=== PATIENT | male | born 1975 | race African-American/Black ===

== ENCOUNTER 2018-09-24 11:10 | Emergency (ER) | payer OTHER ==
[2018-09-24 11:15] VITALS: BP 152/98
[2018-09-24] MEDS ORDERED: FENTANYL CITRATE INJ/PF 100 MCG/2 ML AMPUL IM ONE (11:31)
[2018-09-24] MEDS ORDERED: LIDOCAINE 5% (700 MG) TRANSDERMAL ADH..PATCH TP ONE (11:32)
[2018-09-24] MEDS ORDERED: CYCLOBENZAPRINE HCL 10 MG TABLET PO ONE (11:32)
[2018-09-24] MEDS ORDERED: ACETAMINOPHEN 325 MG TABLET PO ONE (11:32)
--- NOTE | 2018-09-24 11:37 | ER Document Report ---
ED General - General Chief Complaint: Back Pain Stated Complaint: BACK PAIN Time Seen by Provider: 09/24/18 11:22 Primary Care Provider: [facility]AY[facility] [NO LOCAL MD] - Follow up in 3-5 days Mode of Arrival: Ambulatory Information source: Patient, [facility] Records Notes: 42-year-old male with hypertension, asthma, bipolar disorder, arthritis presents with complaints of right low back pain that started 3 weeks prior to arrival with worsening of pain over the last 2 days. Patient works in [employer] and states that he lifted a garbage can onto the truck when it started to fall backwards causing him to twist his back to try to catch it and causing instant pain. Patient describes the pain as throbbing, aching with intermittent radiation to his right leg. He denies any leg weakness, saddle anesthesia, fever, history of IV drug use, urinary retention or fecal incontinence. TRAVEL OUTSIDE OF THE [place] IN LAST 30 DAYS: No - HPI Onset: Other Onset/Duration: Gradual, Persistent Quality of pain: Throbbing Severity: Moderate Associated symptoms: denies: Chest pain, Chills, Fever, Nausea, Vomiting, Shortness of breath Exacerbated by: Movement Relieved by: Denies Similar symptoms previously: No Recently seen / treated by doctor: No - Related Data Allergies/Adverse Reactions: acetaminophen [From Vicodin] Allergy (Verified 09/24/18 11:10) Nausea Iodinated Contrast- Oral and IV Dye [IV Dye, Iodine Containing] Allergy (Verified 09/24/18 11:10) Nausea red dye Allergy (Verified 09/24/18 11:10) tramadol Allergy (Verified 09/24/18 11:10) naproxen Adverse Reaction (Verified 09/24/18 11:10) Past Medical History - General Information source: Patient - Social History Smoking Status: Current Every Day Smoker Cigarette use (# per day): Yes - 20 Chew tobacco use (# tins/day): No Smoking Education Provided: Yes - Smoking cessation counseling was provided for 4 minutes at the bedside Frequency of alcohol use: Occasional Drug Abuse: None Lives with: Family Family History: CAD Patient has suicidal ideation: No Patient has homicidal ideation: No - Past Medical History Cardiac Medical History: Reports: Hx Hypertension Pulmonary Medical History: Reports: Hx Asthma Renal/ Medical History: Denies: Hx Peritoneal Dialysis Musculoskeletal Medical History: Reports Hx Arthritis Psychiatric Medical History: Reports: Hx Bipolar Disorder, Hx Depression, Hx Schizophrenia Past Surgical History: Reports: Hx Orthopedic Surgery - left great toe - Immunizations Hx Diphtheria, Pertussis, Tetanus Vaccination: Yes Review of Systems - Review of Systems Notes: REVIEW OF SYSTEMS: CONSTITUTIONAL : Denies fever, chills, or sweats. Denies recent illness. Denies weight loss, recent hospitalizations. EENT: Denies visual changes, eye pain. Denies sore throat, oral lesions, difficulty swallowing. CARDIOVASCULAR: Denies chest pain. Denies palpitations. Denies lower extremity edema. RESPIRATORY: Denies cough. Denies shortness of breath, wheezing. GASTROINTESTINAL: Denies abdominal pain or distention. Denies nausea, vomiting, or diarrhea. Denies blood in vomitus, stools, or per rectum. Denies black, tarry stools. Denies constipation. GENITOURINARY: Denies difficulty urinating, painful urination, frequency, blood in urine, testicular pain or penile discharge. MUSCULOSKELETAL: Denies neck pain or stiffness. Denies joint pain or swelling. SKIN: Denies rash, lesions or sores. HEMATOLOGIC : Denies easy bruising or bleeding. LYMPHATIC: Denies swollen glands. NEUROLOGICAL: Denies confusion or altered mental status. Denies loss of consciousness. Denies dizziness or lightheadedness. Denies headache. Denies weakness or paralysis. Denies problems difficulty with ambulation, slurred speech. Denies sensory loss, numbness, or tingling. Denies seizures. PSYCHIATRIC: Denies anxiety or stress. Denies depression, suicidal ideation, or Physical Exam - Vital signs Vitals: Temp Pulse Resp BP Pulse Ox 97.9 F 98 20 152/98 H 97 09/24/18 11:14 09/24/18 11:14 09/24/18 11:14 09/24/18 11:14 09/24/18 11:14 - Notes Notes: PHYSICAL EXAMINATION: GENERAL: Well-appearing, well-nourished and in no acute distress. HEAD: Atraumatic, normocephalic. EYES: Pupils equal round and reactive to light, extraocular movements intact, sclera anicteric, conjunctiva are normal. ENT: Nares patent, oropharynx clear without exudates. Moist mucous membranes. NECK: Normal range of motion, supple without lymphadenopathy LUNGS: Breath sounds clear to auscultation bilaterally and equal. No wheezes ra les or rhonchi. HEART: Regular rate and rhythm without murmurs ABDOMEN: Soft, nontender, nondistended abdomen. No guarding, no rebound. No masses appreciated. Musculoskeletal: Normal range of motion, no pitting or edema. No cyanosis. Tenderness with palpation along the right paraspinal musculature of the lumbar spine. No midline tenderness. NEUROLOGICAL: Mental status; alert and oriented x3. Cranial nerves II through XII intact. Sensation intact to sharp/dull differentiation in all extremities. Motor; normal tone. No abnormal movements appreciated. No pronator drift. Strength tested and 5/5 in bilateral wrist flexion/extension, elbow flexion/extension, shoulder abduction, straight leg raise, knee flexion/extension, ankle dorsiflexion/plantar flexion. Patient ambulates with a steady gait. Coordination; no ataxia. Finger to nose and heel to uribe testing intact bilaterally. Reflexes; brachial radialis, biceps, and patellar reflexes within normal limits and symmetric bilaterally. Babinski with downgoing toes bilaterally. Patient able to go up on his toes, up on his heels. Straight leg raise negative bilaterally PSYCH: Normal mood, normal affect. SKIN: Warm, Dry, normal turgor, no rashes or lesions noted. Course - Re-evaluation Re-evalutation: Temp Pulse Resp BP Pulse Ox 97.9 F 98 20 152/98 H 97 09/24/18 11:14 09/24/18 11:14 09/24/18 11:14 09/24/18 11:14 09/24/18 11:14 09/24/18 16:25 42-year-old male presents with right low back pain with tenderness along the right paraspinal musculature. No neuro deficits, red flag symptoms including fever, leg weakness, saddle anesthesia, urinary retention, fecal incontinence, history of IV drug abuse, midline tenderness. Patient does report a lifting injury at work with immediate pain that has slowly progressed. Patient has not tried taking any medication for this. Vital signs reviewed and within normal limits. Patient does not appear toxic or dehydrated. He is in no acute distress. Patient is ambulating without difficulty. Patient was given Flexeril and a lidocaine patch was placed. Prescription for Aspercreme and Flexeril was administered. Presentation of a well appearing patient complaining of acute on chronic back pain. No rapid progression of symptoms, systemic symptoms including fevers, chills, weight loss, history of recent bacterial infection, bilateral symptoms, numbness, weakness, difficulty walking, urinary retention or bowel incontinence, personal history of cancer, immunosuppression, diabetes, known AAA, or history of IV drug use. Exam is without point tenderness over vertebral bodies, pulsatile abdominal mass, and patient has symmetric and intact lower extremity strength, sensation, and reflexes without clonus. 2+ symmetric medial malleolar and dorsalis pedis pulses Plan to manage conservatively with outpatient analgesia, analgesia. - Acetaminophen 650 q 4 + ibuprofen 600 q 6, Aspercreme, Flexeril - Continue normal daily activities as tolerated by pain - Provide with standard musculoskeletal back pain exercise instructions - Instruct to follow up with primary care provider if symptoms not improving - Provide careful return precautions and concerning symptoms to watch for. - Vital Signs Vital signs: Temp Pulse Resp BP Pulse Ox 97.9 F 98 20 152/98 H 97 09/24/18 11:14 09/24/18 11:14 09/24/18 11:14 09/24/18 11:14 09/24/18 11:14 Discharge - Discharge Clinical Impression: Low back pain Qualifiers: Chronicity: acute Back pain laterality: right Sciatica presence: without sciatica Qualified Code(s): M54.5 - Low back pain Lumbar strain Qualifiers: Encounter type: initial encounter Qualified Code(s): S39.012A - Strain of muscle, fascia and tendon of lower back, initial encounter Hypertension Qualifiers: Hypertension type: unspecified Qualified Code(s): I10 - Essential (primary) hypertension Condition: Good Disposition: HOME, SELF-CARE Instructions: Ice Packs ([facility]), Muscle Strain ([facility]), Pain Medication Injection ([facility]) Additional Instructions: You have been seen in the Emergency Department (ED) today for back pain. Your workup and exam have not shown any acute abnormalities and you are likely suffering from muscle strain or possible problems with your discs, but there is no treatment that will fix your symptoms at this time. You should also purchase a local lidocaine cream such as "aspercreme with lidocaine" and use per bottle instructions to the affected area. Apply heat to the area as often as you are able. Continue to keep active and avoid prolonged periods of bed rest. Please follow up with your doctor as soon as possible regarding today's ED visit and your back pain. Return to the ED for worsening back pain, fever, weakness or numbness of either leg, or if you develop either (1) an inability to urinate or have bowel movements, or (2) loss of your ability to control your bathroom functions (if you start having "accidents"), or if you develop other new symptoms that concern you.concern you. Prescriptions: Cyclobenzaprine HCl [Flexeril 10 mg Tablet] 10 mg PO TIDP PRN #15 tab PRN Reason: Lidocaine HCl [Aspercreme] 76.5 gm TP BID #1 tube Forms: Elevated Blood Pressure, Smoking Cessation Education, Return to Work [facility]errals: [facility] [NO LOCAL MD] - Follow up in 3-5 days
== END 2018-09-24 12:05 | disposition home or self-care (01) ==
LOC: ER 11:10
DX: S39.012A Strain of muscle, fascia and tendon of lower back, initial encounter (principal); X50.0XXA Overexertion from strenuous movement or load, initial encounter; Y93.89 Activity, other specified; Y99.0 Civilian activity done for income or pay; I10 Essential (primary) hypertension; J45.909 Unspecified asthma, uncomplicated; F17.210 Nicotine dependence, cigarettes, uncomplicated; Z71.6 Tobacco abuse counseling; Z88.6 Allergy status to analgesic agent; Z91.041 Radiographic dye allergy status; Z88.5 Allergy status to narcotic agent; Z91.048 Other nonmedicinal substance allergy status
CPT/HCPCS: 99283; 99406

== ENCOUNTER 2020-05-13 16:32 | Observation (INO) | payer SELFPAY ==
--- NOTE | 2020-05-13 16:49 | ER Document Report ---
ED Medical Screen (RME) - General Stated Complaint: DIFFICULTY BREATHING Time Seen by Provider: 05/13/20 16:40 TRAVEL OUTSIDE OF THE [place] IN LAST 30 DAYS: No - HPI Notes: 05/13/20 16:42 44-year-old male with a history of anxiety and asthma presents to the emergency room with shortness of breath that started approximately 2 hours ago along with left-sided chest pain that started 2 hours ago. Patient denies he had an episode last week where he was short of breath after he was walking downstairs and he became lightheaded after consuming an energy drink. denies any history of having any myocardial infarctions. Denies any radiation of his chest pain. Reports nausea but denies any vomiting or abdominal pain. Does endorse feeling lightheaded and dizzy. Denies taking any medications aside from his rescue inhaler. Denies any fevers or chills. Charge nurse Rosalia, made aware of pt's status and need for room at 1642. pt will be brought to T2 I have greeted and performed a rapid initial assessment of this patient. A comprehensive ED assessment and evaluation of the patient, analysis of test results and completion of the medical decision making process will be conducted by additional ED providers. PHYSICAL EXAMINATION: GENERAL: Mildly ill, well-nourished and in moderate distress HEAD: Atraumatic, normocephalic. CV: tachycardia LUNGS: tachypneic, breath sounds clear in all lobes RR 46 Musculoskeletal: Normal range of motion NEUROLOGICAL: Breathless, in wheel chair SKIN: Warm, Dry, normal turgor, no rashes or lesions noted. - Related Data Allergies/Adverse Reactions: acetaminophen [From Vicodin] Allergy (Verified 09/24/18 11:10) Nausea Iodinated Contrast Media [IV Dye, Iodine Containing] Allergy (Verified 09/24/18 11:10) Nausea red dye Allergy (Verified 09/24/18 11:10) tramadol Allergy (Verified 09/24/18 11:10) naproxen Adverse Reaction (Verified 09/24/18 11:10) Past Medical History - Past Medical History Cardiac Medical History: Reports: Hx Hypertension Pulmonary Medical History: Reports: Hx Asthma Renal/ Medical History: Denies: Hx Peritoneal Dialysis Musculoskeltal Medical History: Reports Hx Arthritis Psychiatric Medical History: Reports: Hx Bipolar Disorder, Hx Depression, Hx Schizophrenia Past Surgical History: Reports: Hx Orthopedic Surgery - left great toe - Immunizations Hx Diphtheria, Pertussis, Tetanus Vaccination: Yes Physical Exam - Vital signs Vitals: Pulse Resp BP Pulse Ox 163 H 46 H 132/76 H 98 05/13/20 16:40 05/13/20 16:40 05/13/20 16:40 05/13/20 16:40 Course - Vital Signs Vital signs: Temp Pulse Resp BP Pulse Ox 163 H 46 H 132/76 H 98 05/13/20 16:40 05/13/20 16:40 05/13/20 16:40 05/13/20 16:40
[2020-05-13] MEDS ORDERED: DILTIAZEM HCL INJ 25 MG/5 ML VIAL IV ONE ×2 (17:07→17:17)
[2020-05-13] MEDS ORDERED: LORAZEPAM INJ 2 MG/1 ML VIAL IV ONE (17:07)
[2020-05-13] MEDS ORDERED: NORMAL SALINE 1000 ML 1,000 ML IV ONE (17:11)
[2020-05-13] MEDS ORDERED: DILTIAZEM HCL INJ 25 MG/5 ML VIAL ONE (17:17)
--- NOTE | 2020-05-13 17:17 | ER Document Report ---
ED Respiratory Problem - General Chief Complaint: Shortness Of Breath Stated Complaint: DIFFICULTY BREATHING Time Seen by Provider: 05/13/20 16:40 Mode of Arrival: Ambulatory Information source: Patient Notes: 05/13/20 16:41 - ED Nursing Note by BOLIVAR ALBA [facility] Num: [id number] : 1975 Patient Age: 44 Addendum entered by BOLIVAR ALBA 05/13/20 16:56: unable to obtain temperature at time of triage due to patients work of br [employer]. Original Note: patient presented to [facility] with shortness of breath, pt has labored breathing upon assessment with respiratory rate of 48. Patient brought to [facility] where vital signs were obtained. Heart rate 162bpm, respiratory rate 48, oxygen saturation 97-100%. The patient reports hx of asthma, used rescue inhaler x2. Patient is having left sided chest pain, nausea, and lightheadedness. Attempted to use paper bag to slow down breathing as well as breathing exercises without relief. Pt has anxiety. Pt remains tachycardic throughout triage, heart rate 166 . Charge nurse made aware. ED Medical Screen (Niki guevara) - General Stated Complaint: DIFFICULTY BREATHING Time Seen by Provider: 05/13/20 16:40 TRAVEL OUTSIDE OF THE [place] IN LAST 30 DAYS: No - HPI Notes: 05/13/20 16:42 44-year-old male with a history of anxiety and asthma presents to the emergency room with shortness of breath that started approximately 2 hours ago along with left-sided chest pain that started 2 hours ago. Patient denies he had an episode last week where he was short of breath after he was walking downstairs and he became lightheaded after consuming an energy drink. denies any history of having any myocardial infarctions. Denies any radiation of his chest pain. Reports nausea but denies any vomiting or abdominal pain. Does endorse feeling lightheaded and dizzy. Denies taking any medications aside from his rescue inhaler. Denies any fevers or chills. Charge nurse Rosalia, made aware of pt's status and need for room at 1642. pt will be brought to T2 MY NOTES 44-year-old black male arrives by POV driven by his girlfriend from his job at [employer]. He was rushing up 3 flights of steps very quickly around 1/2 hours prior to arrival. This is when he began to have tightness in his chest shortness of breath and feeling very weak making him sit down. He has never had symptoms like this in the past. He smokes 1 pack of cigarettes daily since he was a teenager. He does drink vodka on a daily basis. He denies any liver disease heart disease fever chills . He reports for the past several days has had cough and cold symptoms but denies any COVID-19. He denies any sickness and his girlfriend who drove him as well. Patient denies any hematuria hemoptysis skin lesions sore throat nuchal rigidity blurry vision cephalgia hematuria low back pain extremity pain. Upon arrival he was given Ativan 2 IV and Cardizem 25 IV because of a heart rate around 170 bpm and this decreased after another 10 mg IV of Cardizem to 160 with blood pressure decreasing as well and patient was much more comfortable by 1720 at this point was also placed on amiodarone drip 150 bolus. Nathanael upfront at triage and ordered a CTA and this is pending on the patient becoming more stable for transport to CT room. Also patient reports she has a history of hypertension and has been out of his lisinopril for least 4 months. Patient also reports he has had for the past several days right groin pain and dysuria with symptoms resembling his last UTI. He reports this happened many years ago. Patient denies any hematuria or trauma or STDs. TRAVEL OUTSIDE OF THE [place] IN LAST 30 DAYS: No - HPI Patient complains to provider of: Chest pain, Hurts to breath, Short of breath Onset: Just prior to arrival - while at work Quality of pain: Achy Severity: Severe Pain Level: 5 Chest pain/discomfort: Heaviness, Tightness Cough: Nonproductive Sputum amount: None Associated symptoms: Anxiety - Related Data Allergies/Adverse Reactions: acetaminophen [From Vicodin] Allergy (Verified 09/24/18 11:10) Nausea Iodinated Contrast Media [IV Dye, Iodine Containing] Allergy (Verified 09/24/18 11:10) Nausea red dye Allergy (Verified 09/24/18 11:10) tramadol Allergy (Verified 09/24/18 11:10) naproxen Adverse Reaction (Verified 09/24/18 11:10) Past Medical History - General Information source: Patient - Social History Smoking Status: Unknown if Ever Smoked Cigarette use (# per day): Yes - 1 ppd Chew tobacco use (# tins/day): No Smoking Education Provided: Yes Drug Abuse: None Lives with: Family Family History: Reviewed & Not Pertinent, CAD Patient has suicidal ideation: No Patient has homicidal ideation: No - Past Medical History Cardiac Medical History: Reports: Hx Hypertension Pulmonary Medical History: Reports: Hx Asthma Renal/ Medical History: Denies: Hx Peritoneal Dialysis Musculoskeletal Medical History: Reports Hx Arthritis Psychiatric Medical History: Reports: Hx Bipolar Disorder, Hx Depression, Hx Schizophrenia Past Surgical History: Reports: Hx Orthopedic Surgery - left great toe - Immunizations Hx Diphtheria, Pertussis, Tetanus Vaccination: Yes Review of Systems - Review of Systems Constitutional: No symptoms reported EENT: No symptoms reported Cardiovascular: No symptoms reported Respiratory: No symptoms reported Gastrointestinal: No symptoms reported Genitourinary: No symptoms reported Male Genitourinary: No symptoms reported Musculoskeletal: No symptoms reported Skin: No symptoms reported Hematologic/Lymphatic: No symptoms reported Neurological/Psychological: No symptoms reported Physical Exam - Vital signs Vitals: Pulse Resp BP Pulse Ox 163 H 46 H 132/76 H 98 05/13/20 16:40 05/13/20 16:40 05/13/20 16:40 05/13/20 16:40 Interpretation: Hypertensive, Tachycardic - General General appearance: Appears well, Alert - HEENT Head: Normocephalic, Atraumatic Eyes: Normal Pupils: PERRL - Respiratory Respiratory status: No respiratory distress Chest status: Nontender Breath sounds: Normal Chest palpation: Normal - Cardiovascular Rhythm: Irregularly irregular, Tachycardia Heart sounds: Normal auscultation Murmur: No Friction rub: No Piedad's crunch: No - Abdominal Inspection: Normal Distension: No distension Bowel sounds: Normal Tenderness: Nontender Organomegaly: No organomegaly - Rectal Prostate: Other - deferred - Genitourinary Scrotum: Other - deferred - Back Back: Normal, Nontender - Extremities General upper extremity: Normal inspection, Nontender, Normal color, Normal ROM, Normal temperature General lower extremity: Normal inspection, Nontender, Normal color, Normal ROM, Normal temperature, Normal weight bearing. No: Karrie's sign - Neurological Neuro grossly intact: Yes Cognition: Normal Orientation: AAOx4 [place] Coma Scale Eye Opening: Spontaneous [place] Coma Scale Verbal: Oriented [place] Coma Scale Motor: Obeys Commands [place] Coma Scale Total: 15 Speech: Normal Motor strength normal: LUE, RUE, LLE, RLE Sensory: Normal - Psychological Associated symptoms: Anxious - Skin Skin Temperature: Warm Skin Moisture: Dry Skin Color: Normal Course - Vital Signs Vital signs: Temp Pulse Resp BP Pulse Ox 98 F 153 H 39 H 161/106 H 97 05/13/20 17:20 05/13/20 17:20 05/13/20 20:00 05/13/20 19:25 05/13/20 20:00 - Laboratory Result Diagrams: 05/13/20 17:03 05/13/20 18:27 Laboratory results interpreted by me: 05/13/20 05/13/20 05/13/20 17:03 18:27 18:27 WBC 10.6 H Plt Count 541 H Sodium 136.6 L Carbon Dioxide 21 L Creatine Kinase 211 H Urine Protein 05/13/20 20:07 WBC Plt Count Sodium Carbon Dioxide Creatine Kinase Urine Protein 30 H - Diagnostic Test Radiology reviewed: Reports reviewed - Chest x-ray read negative by radiologist and I reviewed this as it was taken on the portable machine. His CT however was read as interstitial infectious bilateral disease process versus edema. His CT of abdomen was within normal limits. - EKG Interpretation by Me EKG shows normal: Sinus rhythm Rate: Tachycardia Rhythm: NSR - Heart rate around 163 bpm with first-degree AV block borderline inferior Q waves and also repolarization suggest ischemia inferior leads with borderline prolonged QT interval. This EKG was read by myself and I agree with machine. Critical Care Note - Critical Care Note Comments: I advised patient of his lab findings and his CT findings and he still wants to go home despite having a heart rate of 144 and hypertension. I discussed this case with Dr. Mcintyre cork painter and grader and he will see this patient in the hospital as well as Dr. Eduardo Ruffin at [facility] and he will evaluate the patient in the ER. Discharge - Discharge Clinical Impression: Anxiety, Tachycardia, Chest pain at rest, Interstitial pneumonia of both lungs, COVID-19 virus RNA test result unknown Condition: Stable Disposition: ADMITTED INPATIENT Admitting Provider: Dr Eduardo Ruffin Unit Admitted: [facility] Additional Instructions: Transfer patient to [facility] as per Dr. Clark
[2020-05-13] MEDS ORDERED: AMIODARONE HCL 150 MG in DEXTROSE 5%-WATER 100 ML IV ONE (17:21)
[2020-05-13] MEDS ORDERED: AMIODARONE HCL INJ 150 MG/3 ML VIAL IV ONE (17:27)
[2020-05-13 17:32] LABS: INTERNATIONAL RATION (INR) 1.01; PARTIAL THROMBOPLASTIN TIME 25.6 SEC (23.5-35.8); PROTHROMBIN TIME 13.5 SEC (11.4-15.4)
[2020-05-13 17:36] LABS: ABSOLUTE BASOPHILS # (AUTO) 0.1 10^3/uL (0.0-0.2); ABSOLUTE MONOCYTES (AUTO) 0.9 10^3/uL (0.1-1.4); ABSOLUTE NEUT (AUTO) 6.5 10^3/uL (1.7-8.2); BASOPHILS % (AUTO) 0.7 % (0-2); EOSINOPHILS % (AUTO) 0.1 % (0-6); HEMATOCRIT 42.6 % (37.9-51.0); HEMOGLOBIN 14.6 g/dL (13.5-17.0); LYMPHOCYTES % (AUTO) 28.7 % (13-45); MEAN CORPUSCULAR HEMOGLOBIN 32.9 pg (27.0-33.4); MEAN CORPUSCULAR HGB CONC 34.2 g/dL (32.0-36.0); MEAN CORPUSCULAR VOLUME 96 fl (80-97); MONOCYTES % (AUTO) 8.9 % (3-13); PLATELET COUNT 541 10^3/uL (150-450); RED BLOOD COUNT 4.43 10^6/uL (4.35-5.55); RED CELL DISTRIBUTION WIDTH 12.9 % (11.5-14.0); SEGMENTED NEUTROPHILS % (AUTO) 61.6 % (42-78); TOTAL CELLS COUNTED % (AUTO) 100 %; WHITE BLOOD COUNT 10.6 10^3/uL (4.0-10.5)
--- NOTE | 2020-05-13 18:02 | RADIOLOGY REPORT (SQ) ---
EXAM DESCRIPTION: CHEST SINGLE VIEW IMAGES COMPLETED DATE/TIME: 05/13/2020 4:08 pm REASON FOR STUDY: Shortness of breath T COMPARISON: 03/19/2020 EXAM PARAMETERS: NUMBER OF VIEWS: One view. TECHNIQUE: Single frontal radiographic view of the chest acquired. RADIATION DOSE: NA LIMITATIONS: None. FINDINGS: LUNGS AND PLEURA: No opacities, masses or pneumothorax. No pleural effusion. MEDIASTINUM AND HILAR STRUCTURES: No masses. Contour normal. HEART AND VASCULAR STRUCTURES: Heart normal in size. Normal vasculature. BONES: No acute findings. HARDWARE: None in the chest. OTHER: No other significant finding. IMPRESSION: NO ACUTE RADIOGRAPHIC FINDING IN THE CHEST. TECHNICAL DOCUMENTATION: JOB ID: [id number] 2010 [employer]- All Rights Reserved Reading location - IP/workstation name: [email or web address]
--- NOTE | 2020-05-13 18:41 | RADIOLOGY REPORT (SQ) ---
EXAM DESCRIPTION: CTA CHEST IMAGES COMPLETED DATE/TIME: 05/13/2020 6:23 pm REASON FOR STUDY: sob, breathless, heart rate 160s COMPARISON: Chest x-ray 05/13/2020 TECHNIQUE: CT scan of the chest performed using helical scanning technique with dynamic intravenous contrast injection. Images reviewed with lung, soft tissue and bone windows. Reconstructed coronal and sagittal MPR images reviewed. Additional 3 dimensional post-processing performed to develop Maximal Intensity Projection images ([place] P). All images stored on PACS. All CT scanners at this facility use dose modulation, iterative reconstruction, and/or weight based d osing when appropriate to reduce radiation dose to as low as reasonably achievable (ALARA). [facility]: Dose Right [facility]: CareDose [facility]: Dose Right [facility]: Teradose 4D [facility]: GenePeeks CONTRAST TYPE AND DOSE: 100 mL Omnipaque 350- low osmolar. Contrast bolus adequate for pulmonary arteries and aorta. RENAL FUNCTION: None required. The patient is less than 50 years old. RADIATION DOSE: CT Rad equipment meets quality standard of care and radiation dose reduction techniq ues were employed. CTDIvol: 24.8 - 34.3 mGy. DLP: 4933 mGy-cm. . LIMITATIONS: None. FINDINGS: LUNGS AND PLEURA: Bilateral ground-glass infiltrates the upper lobes predominantly. Limit ed ground-glass infiltrates in the left lower lobe. Mild dependent atelectasis in the lower lobes bi laterally. AORTA AND GREAT VESSELS: No aneurysm. No dissection. HEART: No pericardial effusion. No significant coronary artery calcifications. PULMONARY ARTERIES: No emboli visualized in the main pulmonary arteries or the segmental branches. HILAR AND MEDIASTINAL STRUCTURES: No identified masses or abnormal nodes. HARDWARE: None in the chest. UPPER ABDOMEN: See separate report of the CT of the abdomen. THYROID AND OTHER SOFT TISSUES: No masses. No adenopathy. BONES: No acute or significant finding. 3D MIPS: Confirm above findings. OTHER: No other significant finding. IMPRESSION: 1. Bilateral ground-glass infiltrates in the upper lobes. Atypical infectious/ inflamm atory process versus chronic interstitial changes versus interstitial edema. 2. There is no pulmonary embolus. There is no aortic aneurysm or dissection. COMMENT: Quality ID # 436: Final reports with documentation of one or more dose reduction techniques (e.g., Automated exposure control, adjustment of the mA and/or kV according to patient size, use of iterative reconstruction technique) TECHNICAL DOCUMENTATION: JOB ID: [id number] 2010 [employer] [facility] [employer]- All Rights Reserved Reading location - IP/workstation name: [email or web address]
--- NOTE | 2020-05-13 18:48 | RADIOLOGY REPORT (SQ) ---
EXAM DESCRIPTION: CT ABD/PELVIS WITH IV ONLY IMAGES COMPLETED DATE/TIME: 05/13/2020 6:23 pm REASON FOR STUDY: rlq flank pain COMPARISON: 02/02/2016 TECHNIQUE: CT scan of the abdomen and pelvis performed using helical scanning technique with dynamic intravenous contrast injection. No oral contrast. Images reviewed with lung, soft tissue, and bone windows. Reconstructed coronal and sagittal MPR images reviewed. Delayed images for evaluation of the urinary system also acquired. All images stored on PACS. All CT scanners at this facility use dose modulation, iterative reconstruction, and/or weight based d osing when appropriate to reduce radiation dose to as low as reasonably achievable (ALARA). [facility]: Dose Right [facility]: CareDose [facility]: Dose Right [facility]: Teradose 4D [facility]: [employer] CONTRAST TYPE AND DOSE: contrast/concentration: Isovue 350.00 mmol/ml; Total Contrast Delivered: 100 .0 ml; Total Saline Delivered: 43.5 ml RENAL FUNCTION: None required. The patient is less than 50 years old. RADIATION DOSE: . LIMITATIONS: None. FINDINGS: LOWER CHEST: See separate report of the CT of the chest. LIVER: Normal size. No masses. No dilated ducts. SPLEEN: Normal size. No focal lesions. PANCREAS: No masses. No significant calcifications. No adjacent inflammation or peripancreatic fluid collections. Pancreatic duct not dilated. GALLBLADDER: No identified stones by CT criteria. No inflammatory changes to suggest cholecystitis. ADRENAL GLANDS: No significant masses or asymmetry. RIGHT KIDNEY AND URETER: No solid masses. No significant calcifications. No hydronephrosis or hyd roureter. LEFT KIDNEY AND URETER: No solid masses. No significant calcifications. No hydronephrosis or hydr oureter. AORTA AND VESSELS: No aneurysm. No dissection. Renal arteries, SMA, celiac without stenosis. RETROPERITONEUM: No retroperitoneal adenopathy, hemorrhage or masses. BOWEL AND PERITONEAL CAVITY: No masses or inflammatory changes. No free fluid or peritoneal masses. APPENDIX: Normal. PELVIS: No mass. No free fluid. Normal bladder. ABDOMINAL WALL: No masses. No hernias. BONES: No significant or acute findings. OTHER: No other significant finding. IMPRESSION: There is no urinary pathology. The appendix is normal. No acute findings in the abdome n or pelvis. TECHNICAL DOCUMENTATION: JOB ID: [id number] Quality ID # [id number]: Final reports with documentation of one or more dose reduction techniques (e.g., Au tomated exposure control, adjustment of the mA and/or kV according to patient size, use of iterative reconstruction technique) 2010 [employer]- All Rights Reserved Reading location - IP/workstation name: [email or web address]
[2020-05-13] MEDS ORDERED: BUMETANIDE INJ/PF 1 MG/4 ML SDV IV ONE (18:57)
[2020-05-13] MEDS ORDERED: AZITHROMYCIN INJ 500 MG VIAL IV ONE (18:58)
[2020-05-13] MEDS ORDERED: DEXAMETHASONE SOD PHOS INJ 10 MG/1 ML VIAL IV ONE (19:10)
[2020-05-13] MEDS ORDERED: FAMOTIDINE INJ/PF 20 MG/2 ML SDV IV ONE (19:10)
[2020-05-13 19:26] LABS: ALBUMIN 3.6 g/dL (3.5-5.0); ALKALINE PHOSPHATASE 70 U/L (38-126); ANION GAP 16 (5-19); ASPARTATE AMINO TRANSFERASE 39 U/L (17-59); BILIRUBIN,DIRECT 0.2 mg/dL (0.0-0.4); BILIRUBIN,TOTAL 0.5 mg/dL (0.2-1.3); BLOOD UREA NITROGEN 11 mg/dL (7-20); CALCIUM 9.6 mg/dL (8.4-10.2); CARBON DIOXIDE 21 mmol/L (22-30); CHLORIDE 100 mmol/L (98-107); GLUCOSE 94 mg/dL (75-110); POTASSIUM 4.1 mmol/L (3.6-5.0); TOTAL PROTEIN 6.8 g/dL (6.3-8.2)
[2020-05-13] MEDS ORDERED: DEXAMETHASONE SOD PHOSPHATE INJ 4 MG/1 ML VIAL IV ONE (20:00)
[2020-05-13 20:53] LABS: APPEARANCE,URINE SLIGHTLY-CLOUDY; BILIRUBIN,URINE NEGATIVE (NEGATIVE); COLOR,URINE YELLOW; GLUCOSE, URINE NEGATIVE (NEGATIVE); KETONES,URINE NEGATIVE (NEGATIVE); LEUKOCYTE ESTERASE,URINE NEGATIVE (NEGATIVE); NITRITE,URINE NEGATIVE (NEGATIVE); PROTEIN,URINE 30 mg/dL (NEGATIVE); UROBILINOGEN,URINE NEGATIVE mg/dL (<2.0)
[2020-05-13] MEDS ORDERED: RINGERS SOLUTION,LACTATED 1,000 ML IV PRN (21:07)
[2020-05-13] MEDS ORDERED: ONDANSETRON HCL INJ/PF 4 MG/2 ML SDV IV PRN (21:07)
[2020-05-13] MEDS ORDERED: IPRATROPIUM/ALBUTEROL 0.5-2.5 MG/3 ML AMPUL NEB PRN (21:07)
[2020-05-13 21:11] LABS: URINE BARBITURATES SCREEN NEGATIVE; URINE BENZODIAZEPINES SCREEN NEGATIVE; URINE COCAINE SCREEN NEGATIVE; URINE MARIJUANA (THC) SCREEN NEGATIVE; URINE METHADONE SCREEN NEGATIVE; URINE PHENCYCLIDINE SCREEN NEGATIVE
--- NOTE | 2020-05-13 21:21 | PDOC H&P ---
History of Present Illness Admission Date/PCP: 05/13/20 21:09 Patient complains of: Shortness of breath, Palpitation, chest pain History of Present Illness: LEVY WRIGHT is a 44 year old male with a history of hypertension who presents to the ED complaining of shortness of breath and palpitation. He states that he went to work and he was not hydrating himself well and when he was taking a stair, he started feeling the racing of his heart with associated s hortness of breath, dizziness and a left-sided sharp chest pain which he rated pain 8/10 intensity, nonradiating, with no clear aggravating or relieving factor. Patient also endorses for the past few weeks he has been having heat intolerance and tremors for his fingers. On further questioning patient also admits that he took methamphetamine. He denies nausea, vomiting, diarrhea, abdominal pain, weakness of extremities. On arrival to ED patient was tachycardic with a heart rate in the 180. He was given Cardizem and amiodarone but his heart rate improved to 140s only. Otherwise patient other vital signs were stable. Patient reports interval improvement in his shortness of breath and lightheadedness since arrival. He denied cough, fever, chills, runny nose or congestion. Past Medical History Cardiac Medical History: Reports: Hypertension Pulmonary Medical History: Reports: Asthma Musculoskeltal Medical History: Reports: Arthritis Psychiatric Medical History: Reports: Bipolar Disorder, Depression Past Surgical History Past Surgical History: Reports: Orthopedic Surgery - left great toe Social History Information Source: Patient Lives with: Family Smoking Status: Unknown if Ever Smoked Frequency of Alcohol Use: None Hx Recreational Drug Use: Yes - Methamphetamine Hx Prescription Drug Abuse: No - Advance Directive Resuscitation Status: Full Code Family History Family History: Reviewed & Not Pertinent, CAD Parental Family History Reviewed: Yes Children Family History Reviewed: Yes Sibling(s) Family History Reviewed.: Yes Medication/Allergy Allergies/Adverse Reactions: acetaminophen [From Vicodin] Allergy (Verified 09/24/18 11:10) Nausea Iodinated Contrast Media [IV Dye, Iodine Containing] Allergy (Verified 09/24/18 11:10) Nausea red dye Allergy (Verified 09/24/18 11:10) tramadol Allergy (Verified 09/24/18 11:10) naproxen Adverse Reaction (Verified 09/24/18 11:10) Review of Systems Constitutional: ABSENT: chills, fever(s), headache(s), weight gain, weight loss Eyes: ABSENT: visual disturbances Ears: ABSENT: hearing changes Nose, Mouth, and Throat: ABSENT: as per HPI, headache(s), mouth pain, sore throat, vertigo, other Cardiovascular: PRESENT: as per HPI Respiratory: PRESENT: as per HPI Gastrointestinal: ABSENT: abdominal pain, constipation, diarrhea, hematemesis, hematochezia, nausea, vomiting Genitourinary: ABSENT: dysuria, hematuria Musculoskeletal: ABSENT: joint swelling Integumentary: ABSENT: rash, wounds Neurological: ABSENT: abnormal gait, abnormal speech, confusion, dizziness, focal weakness, syncope Psychiatric: ABSENT: anxiety, depression, homidical ideation, suicidal ideation Endocrine: ABSENT: cold intolerance, heat intolerance, polydipsia, polyuria Hematologic/Lymphatic: ABSENT: easy bleeding, easy bruising Physical Exam Vital Signs: Temp Pulse Resp BP Pulse Ox 98 F 153 H 39 H 161/106 H 97 05/13/20 17:20 05/13/20 17:20 05/13/20 20:00 05/13/20 19:25 05/13/20 20:00 Intake & Output 05/12/20 05/13/20 05/14/20 06:59 06:59 06:59 Intake Total 1000 Balance 1000 Additional comments: GENERAL APPEARANCE: Alert and oriented x3, in mild discomfort due to back pain during exam HEENT: Normocephalic and atraumatic. No scleral icterus. NECK: Supple. No lymphadenopathy or tenderness. No JVD CHEST: Symmetric. Nontender to palpation. LUNGS: Has faint scattered wheezes bilaterally HEART: Tachycardic with a heart rate in the 140s, regular rate and rhythm with normal S1 and S2. No murmurs, gallops, or rubs. ABDOMEN: soft, active bowel sounds, no direct or rebound tenderness. No organomegaly detected. No CVA tenderness EXTREMITIES: No cyanosis, clubbing, or edema. MUSCULOSKELETAL: No deformity, atrophy or swelling noted PSYCHIATRIC: Recent and remote memory is intact. Appropriate mood and affect. SKIN: Warm, dry, and well perfused. No lesions or rashes are noted. NEUROLOGIC: No focal sensory or motor deficits are noted. Results Laboratory Results: 05/13/20 17:03 05/13/20 18:27 05/13/20 05/13/20 05/13/20 17:03 17:03 18:27 WBC 10.6 H RBC 4.43 Hgb 14.6 Hct 42.6 MCV 96 MCH 32.9 MCHC 34.2 RDW 12.9 Plt Count 541 H Seg Neutrophils % 61.6 Sodium Cancelled 136.6 L Potassium Cancelled 4.1 Chloride Cancelled 100 Carbon Dioxide Cancelled 21 L Anion Gap Cancelled 16 BUN Cancelled 11 Creatinine Cancelled 1.24 Est GFR ( Amer) Cancelled > 60 Est GFR (Non-Af Amer) Cancelled Glucose Cancelled 94 Calcium Cancelled 9.6 Magnesium Cancelled 1.6 Total Bilirubin Cancelled 0.5 AST Cancelled 39 Alkaline Phosphatase Cancelled 70 Total Protein Cancelled 6.8 Albumin Cancelled 3.6 Urine Color Urine Appearance Urine pH Ur Specific Marion Urine Protein Urine Glucose (UA) Urine Ketones Urine Blood Urine Nitrite Ur Leukocyte Esterase Urine WBC (Auto) Urine RBC (Auto) 05/13/20 20:07 WBC RBC Hgb Hct MCV MCH MCHC RDW Plt Count Seg Neutrophils % Sodium Potassium Chloride Carbon Dioxide Anion Gap BUN Creatinine Est GFR ( Amer) Est GFR (Non-Af Amer) Glucose Calcium Magnesium Total Bilirubin AST Alkaline Phosphatase Total Protein Albumin Urine Color YELLOW Urine Appearance SLIGHTLY-CLOUDY Urine pH 6.0 Ur Specific [place] 1.040 Urine Protein 30 H Urine Glucose (UA) NEGATIVE Urine Ketones NEGATIVE Urine Blood NEGATIVE Urine Nitrite NEGATIVE Ur Leukocyte Esterase NEGATIVE Urine WBC (Auto) 2 Urine RBC (Auto) 1 05/13/20 05/13/20 17:03 18:27 Creatine Kinase 211 H Troponin I < 0.012 Impressions: Chest X-Ray 05/13/20 16:40 IMPRESSION: NO ACUTE RADIOGRAPHIC FINDING IN THE CHEST. Chest/Abdomen CTA 05/13/20 16:45 IMPRESSION: 1. Bilateral ground-glass infiltrates in the upper lobes. Atypical infectious/ inflammatory process versus chronic interstitial changes versus interstitial edema. 2. There is no pulmonary embolus. There is no aortic aneurysm or dissection. Abdomen/Pelvis CT 05/13/20 17:46 IMPRESSION: There is no urinary pathology. The appendix is normal. No acute findings in the abdomen or pelvis. Assessment and Plan - Diagnosis (1) Tachycardia Is this a current diagnosis for this admission?: Yes Plan: The likely cause for patient symptoms including shortness of breath, li ghtheadedness and chest pain Possibly due to methamphetamine use versus hyperthyroidism Obtain TSH, T3 and T4 levels Continue monitoring him on telemetry Patient was given 2 dose of Cardizem and amiodarone at ED Currently heart rate running in the 140s We will hydrate him with IV fluids Started him on telemetry Counseled him to abstain from illicit drug use May consider cardiology consult if no improvement (2) Chest pain Is this a current diagnosis for this admission?: Yes Plan: Multifactorial including possibly effect of methamphetamine EKG showed sinus tachycardia Troponin within the normal limit Currently patient is chest pain-free Will give aspirin, statin We will initiate him on metoprolol We will place him on telemetry Trend cardiac enzymes and EKG every 6 hourly x2 Will consider stress test tomorrow morning (3) Suspected COVID-19 virus infection Is this a current diagnosis for this admission?: Yes Plan: Patient had findings suspicious for COVID-19 including imaging findings COVID-19 test was obtained at the ED Follow-up with test results Continue supportive care (4) Methamphetamine abuse Is this a current diagnosis for this admission?: Yes Plan: Patient reports using methamphetamine a day ago Likely contributing to his presenting symptoms UDS pending Encouraged and counseled him to abstain from illicit drug use (5) Hypertension Is this a current diagnosis for this admission?: Yes Plan: Patient reports that he has been out of his medication We will reinitiate his antihypertensive medication Closely monitor vital Low-sodium diet - Time Time Spent with patient: 35 or more minutes Total Critical Time (Minutes): 45 Smoking Cessation Education: 3 to 10 minutes Medications reviewed and adjusted accordingly: Yes Anticipated Discharge Disposition: Home, Self Care Anticipated Discharge Timeframe: within 48 hours - Inpatient Certification Based on my medical assessment, after consideration of the patient's comorbidities, presenting symptoms, or acuity I expect that the services needed warrant INPATIENT care.: Yes I certify that my determination is in accordance with my understanding of Medicare's requirements for reasonable and necessary INPATIENT services [42 CFR 412.3e].: Yes Medical Necessity: Need Close Monitoring Due to Risk of Patient Decompensation, Need For Continuous Telemetry Monitoring, Risk of Complication if Not Cared For in Hospital Post Hospital Care: D/C or Transfer Summary
[2020-05-13] MEDS ORDERED: LEVALBUTEROL HCL NEB 0.63 MG/3 ML AMPUL NEB PRN (21:23)
[2020-05-13] MEDS ORDERED: LISINOPRIL 10 MG TABLET PO SCH (21:45)
[2020-05-13] MEDS ORDERED: METOPROLOL TARTRATE 25 MG TABLET PO SCH (22:00)
[2020-05-13] MEDS ORDERED: FAMOTIDINE 20 MG TABLET PO SCH (22:00)
[2020-05-13] MEDS ORDERED: ATORVASTATIN CALCIUM 40 MG TABLET PO SCH (22:00)
[2020-05-13 22:30] LABS: FREE T3 5.31 pg/mL (2.77-5.27); FREE T4 (FREE THYROXINE) 1.61 ng/dL (0.78-2.19)
[2020-05-13 22:44] LABS: THYROID STIMULATING HORMONE 2.56 uIU/mL (0.47-4.68)
[2020-05-13 22:52] LABS: A TYPE INFLUENZA AG NEGATIVE (NEGATIVE); B INFLUENZA AG NEGATIVE (NEGATIVE)
[2020-05-13 23:00] LABS: CHLAM PCR NOT DETECTED (NOT DETECT)
[2020-05-14] MEDS ORDERED: IBUPROFEN 800 MG TABLET PO ONE (00:37)
[2020-05-14 02:10] VITALS: BP 143/90
[2020-05-14] MEDS ORDERED: LORAZEPAM INJ 2 MG/1 ML VIAL IV ONE (02:25)
--- NOTE | 2020-05-14 06:38 | Left Against Medical Advice ---
Against Medical Advice Admission Date/Time: 05/13/20 21:09 Primary Care Provider: Date of Patient Emigration: 05/14/20 - Diagnosis: (1) Tachycardia Is this a current diagnosis for this admission?: Yes (2) Chest pain Is this a current diagnosis for this admission?: Yes (3) Hypertension Is this a current diagnosis for this admission?: Yes (4) Methamphetamine abuse Is this a current diagnosis for this admission?: Yes (5) Suspected COVID-19 virus infection Is this a current diagnosis for this admission?: Yes - Summary: Summary: Please see Admission Notes as well. LEVY WRIGHT is a 44 M, who LEFT AGAINST MEDICAL ADVICE. The Patient was admitted on 05/13/20 21:09. The risks of leaving hospital prematurely at this stage were discussed with the patient including worsening of shortness of breath, chest pain, tachycardia even . Patient was extensively counseled to stay and complete his treatment and work-up. He verbalized understanding the risks of leaving and decided to leave AGAINST MEDICAL ADVICE. For detailed description of presenting symptoms and plan of care please refer to admission H&P.
[2020-05-14] MEDS ORDERED: ENOXAPARIN SODIUM INJ 40 MG/0.4 ML DISP.SYRIN SUBCUT SCH (10:00)
--- NOTE | 2020-05-14 18:07 | EKG REPORT ---
SEVERITY:- ABNORMAL ECG - SINUS TACHYCARDIA FIRST DEGREE AV BLOCK BORDERLINE INFERIOR Q WAVES REPOL ABNRM SUGGESTS ISCHEMIA, INFERIOR LEADS BORDERLINE PROLONGED QT INTERVAL : Confirmed by: Adrian Whittaker 14-May-2020 18:06:10
== END 2020-05-14 03:02 | disposition left against medical advice (07) ==
LOC: ER 16:32 → INTOOBSV 21:09 → EH 21:09
PROVIDERS: ADMIT Student in an Organized Health Care Education/Training Program; ATTEND Student in an Organized Health Care Education/Training Program
DX: R00.0 Tachycardia, unspecified (principal); R07.9 Chest pain, unspecified; R06.02 Shortness of breath; I10 Essential (primary) hypertension; F15.10 Other stimulant abuse, uncomplicated; Z20.828 Contact with and (suspected) exposure to other viral communicable diseases; R42 Dizziness and giddiness; M54.9 Dorsalgia, unspecified; J45.909 Unspecified asthma, uncomplicated; F41.9 Anxiety disorder, unspecified; R11.0 Nausea; R10.30 Lower abdominal pain, unspecified; R30.0 Dysuria; R25.1 Tremor, unspecified; F17.210 Nicotine dependence, cigarettes, uncomplicated; Z82.49 Family history of ischemic heart disease and other diseases of the circulatory system; Z87.440 Personal history of urinary (tract) infections
CPT/HCPCS: 93005; 96376; 99285; 96361; 96375; 96365; 36415; 87040; 84439; 82550; 83735; 84443; 85025; 85610; 85730; 87635; 80053; 81001; 84484; 80307; 84481; 87491; 87591; 87804; 71045; 71275; 74177; 93010; G0378 ×2; J3490 ×2; J1100; J2060; J7060; J7030; J7120; J0456; S0028; J0282; C9803

== ENCOUNTER 2020-06-29 10:38 | Emergency (ER) | payer SELFPAY ==
[2020-06-29] MEDS ORDERED: TAMSULOSIN HCL 0.4 MG CAP.SR.24H PO ONE (12:11)
--- NOTE | 2020-06-29 12:13 | ER Document Report ---
ED Medical Screen (RME) - General Chief Complaint: Flank Pain Stated Complaint: ABDOMINAL PAIN,BLOOD IN URINE Time Seen by Provider: 06/29/20 12:07 Mode of Arrival: Wheelchair Information source: Patient Notes: 44-year-old male presented to ED for flank pain to the right with blood in his urine pain when he urinates and pain in his penis. He states he does smoke a pack and a half a day drinks daily about a pint of vodka and did use meth couple days ago. He is alert oriented respirations regular unlabored speaking in full sentences. He states the pain is pretty severe. He is alert oriented respirations regular nonlabored speaking in full sentences. TRAVEL OUTSIDE OF THE [place] IN LAST 30 DAYS: No - Related Data Allergies/Adverse Reactions: acetaminophen [From Vicodin] Allergy (Verified 06/29/20 12:04) Nausea Iodinated Contrast Media [IV Dye, Iodine Containing] Allergy (Verified 06/29/20 12:04) Nausea red dye Allergy (Verified 06/29/20 12:04) tramadol Allergy (Verified 06/29/20 12:04) naproxen Adverse Reaction (Verified 06/29/20 12:04) Past Medical History - Past Medical History Cardiac Medical History: Reports: Hx Hypertension Pulmonary Medical History: Reports: Hx Asthma Renal/ Medical History: Denies: Hx Peritoneal Dialysis Musculoskeltal Medical History: Reports Hx Arthritis Psychiatric Medical History: Reports: Hx Bipolar Disorder, Hx Depression, Hx Schizophrenia Past Surgical History: Reports: Hx Orthopedic Surgery - left great toe - Immunizations Hx Diphtheria, Pertussis, Tetanus Vaccination: Yes Physical Exam - Vital signs Vitals: Temp Pulse Resp BP Pulse Ox 98.6 F 137 H 20 161/113 H 95 06/29/20 10:54 06/29/20 10:54 06/29/20 10:54 06/29/20 10:54 06/29/20 10:54 Course - Vital Signs Vital signs: Temp Pulse Resp BP Pulse Ox 98.6 F 137 H 20 161/113 H 95 06/29/20 10:54 06/29/20 10:54 06/29/20 10:54 06/29/20 10:54 06/29/20 10:54
[2020-06-29 12:43] LABS: AMORPHOUS SEDIMENT,URINE 1+ /HPF; APPEARANCE,URINE TURBID; BILIRUBIN,URINE NEGATIVE (NEGATIVE); COLOR,URINE YELLOW; GLUCOSE, URINE NEGATIVE (NEGATIVE); KETONES,URINE NEGATIVE (NEGATIVE); LEUKOCYTE ESTERASE,URINE TRACE (NEGATIVE); NITRITE,URINE NEGATIVE (NEGATIVE); PROTEIN,URINE 30 mg/dL (NEGATIVE); URINE SPECIFIC GRAVITY 1.029
[2020-06-29 12:59] LABS: URINE BARBITURATES SCREEN NEGATIVE; URINE BENZODIAZEPINES SCREEN NEGATIVE; URINE COCAINE SCREEN NEGATIVE; URINE MARIJUANA (THC) SCREEN NEGATIVE; URINE METHADONE SCREEN NEGATIVE; URINE PHENCYCLIDINE SCREEN NEGATIVE
[2020-06-29 13:00] LABS: ABSOLUTE MONOCYTES (AUTO) 0.6 10^3/uL (0.1-1.4); EOSINOPHILS % (AUTO) 0.1 % (0-6); PLATELET COUNT 270 10^3/uL (150-450); TOTAL CELLS COUNTED % (AUTO) 100 %
[2020-06-29 13:08] LABS: ABSOLUTE LYMPHOCYTES (AUTO) 1.7 10^3/uL (0.5-4.7); ABSOLUTE NEUT (AUTO) 3.9 10^3/uL (1.7-8.2); BASOPHILS % (AUTO) 0.5 % (0-2); HEMATOCRIT 43.3 % (37.9-51.0); HEMOGLOBIN 14.8 g/dL (13.5-17.0); LYMPHOCYTES % (AUTO) 27.9 % (13-45); MEAN CORPUSCULAR HEMOGLOBIN 32.8 pg (27.0-33.4); MEAN CORPUSCULAR HGB CONC 34.2 g/dL (32.0-36.0); MEAN CORPUSCULAR VOLUME 96 fl (80-97); RED BLOOD COUNT 4.51 10^6/uL (4.35-5.55); RED CELL DISTRIBUTION WIDTH 14.4 % (11.5-14.0); SEGMENTED NEUTROPHILS % (AUTO) 61.5 % (42-78); WHITE BLOOD COUNT 6.3 10^3/uL (4.0-10.5)
[2020-06-29 13:20] LABS: ALBUMIN 4.6 g/dL (3.5-5.0); ALKALINE PHOSPHATASE 112 U/L (38-126); ANION GAP 10 (5-19); ASPARTATE AMINO TRANSFERASE 37 U/L (17-59); BILIRUBIN,DIRECT 0.1 mg/dL (0.0-0.4); BILIRUBIN,TOTAL 0.5 mg/dL (0.2-1.3); BLOOD UREA NITROGEN 13 mg/dL (7-20); CALCIUM 9.9 mg/dL (8.4-10.2); CARBON DIOXIDE 28 mmol/L (22-30); CHLORIDE 102 mmol/L (98-107); GLUCOSE 108 mg/dL (75-110); POTASSIUM 4.5 mmol/L (3.6-5.0); TOTAL PROTEIN 8.3 g/dL (6.3-8.2)
[2020-06-29 13:24] LABS: ALCOHOL < 10 mg/dL (NONE DETECTED)
--- NOTE | 2020-06-29 13:33 | RADIOLOGY REPORT (SQ) ---
EXAM DESCRIPTION: CT ABD/PELVIS NO ORAL OR IV IMAGES COMPLETED DATE/TIME: 06/29/2020 12:06 pm REASON FOR STUDY: Right flank pain pain to penis COMPARISON: 05/13/2020 TECHNIQUE: CT scan of the abdomen and pelvis performed without intravenous or oral contrast. Images reviewed with lung, soft tissue, and bone windows. Reconstructed coronal and sagittal MPR images revi ewed. All images stored on PACS. All CT scanners at this facility use dose modulation, iterative reconstruction, and/or weight based d osing when appropriate to reduce radiation dose to as low as reasonably achievable (ALARA). [facility]: Dose Right [facility]: CareDose [facility]: Dose Right [facility]: Teradose 4D [facility]: [employer] RADIATION DOSE: CT Rad equipment meets quality standard of care and radiation dose reduction techniq ues were employed. CTDIvol: 15.5 mGy. DLP: 829 mGy-cm.mGy. LIMITATIONS: None. FINDINGS: LOWER CHEST: No significant findings. No nodules or infiltrates. NON-CONTRASTED LIVER, SPLEEN, ADRENALS: Evaluation limited by lack of IV contrast. No identified sign ificant masses. PANCREAS: No masses. No peripancreatic inflammatory changes. GALLBLADDER: No identified stones by CT criteria. No inflammatory changes to suggest cholecystitis. RIGHT KIDNEY AND URETER: No suspicious masses. Assessment limited by lack of IV contrast. No signif icant calcifications. No hydronephrosis or hydroureter. LEFT KIDNEY AND URETER: No suspicious masses. Assessment limited by lack of IV contrast. No signifi cant calcifications. No hydronephrosis or hydroureter. AORTA AND RETROPERITONEUM: No aneurysm. No retroperitoneal masses or adenopathy. BOWEL AND PERITONEAL CAVITY: No obvious masses or inflammatory changes. No free fluid. APPENDIX: Normal. PELVIS, BLADDER, AND ABDOMINAL WALL:Calcified pelvic phleboliths. Urinary bladder is decompressed. No abnormal masses. No free fluid. No pelvic adenopathy. BONES: No significant findings. OTHER: No other significant finding. IMPRESSION: NO SIGNIFICANT OR ACUTE PROCESS IN THE ABDOMEN OR PELVIS. COMMENT: Quality ID # [id number]: Final reports with documentation of one or more dose reduction techniques (e.g., Automated exposure control, adjustment of the mA and/or kV according to patient size, use of iterative reconstruction technique) TECHNICAL DOCUMENTATION: JOB ID: [id number] [employer]- All Rights Reserved Reading location - IP/workstation name: [email or web address]
[2020-06-29] MEDS ORDERED: ONDANSETRON HCL INJ/PF 4 MG/2 ML SDV IM ONE (15:43)
[2020-06-29] MEDS ORDERED: HYDROMORPHONE HCL INJ/PF 2 MG/ML AMPULE IM ONE (15:43)
--- NOTE | 2020-06-29 15:51 | ER Document Report ---
Entered by LIN SHIRLEY SCRIBE 06/29/20 1542 Acting as scribe for:TIARA GONCALVES DO ED General - General Chief Complaint: Flank Pain Stated Complaint: ABDOMINAL PAIN,BLOOD IN URINE Time Seen by Provider: 06/29/20 12:07 Mode of Arrival: Wheelchair Information source: Patient Notes: This 44 year old male patient presents to the emergency department today with complaints of bilateral flank pain R>L for the past month, that has gradually worsened. Patient states his flank pain radiates to his groin and lower back. Patient states he thought he possibly had a kidney infection and took some over the counter medication without relief. Patient reports pain with urination and denies penile discharge. Patient reports history of HTN and is not on any regular medications. TRAVEL OUTSIDE OF THE [place] IN LAST 30 DAYS: No - Related Data Allergies/Adverse Reactions: acetaminophen [From Vicodin] Allergy (Verified 06/29/20 12:04) Nausea Iodinated Contrast Media [IV Dye, Iodine Containing] Allergy (Verified 06/29/20 12:04) Nausea red dye Allergy (Verified 06/29/20 12:04) tramadol Allergy (Verified 06/29/20 12:04) naproxen Adverse Reaction (Verified 06/29/20 12:04) Past Medical History - General Information source: Patient - Social History Smoking Status: Current Every Day Smoker Cigarette use (# per day): Yes Chew tobacco use (# tins/day): No Frequency of alcohol use: Heavy Family History: Reviewed & Not Pertinent, CAD Patient has homicidal ideation: No - Past Medical History Cardiac Medical History: Reports: Hx Hypertension Pulmonary Medical History: Reports: Hx Asthma Musculoskeletal Medical History: Reports Hx Arthritis Psychiatric Medical History: Reports: Hx Bipolar Disorder, Hx Depression, Hx Schizophrenia Past Surgical History: Reports: Hx Orthopedic Surgery - left great toe - Immunizations Hx Diphtheria, Pertussis, Tetanus Vaccination: Yes Review of Systems - Review of Systems Constitutional: No symptoms reported EENT: No symptoms reported Cardiovascular: No symptoms reported Respiratory: No symptoms reported Gastrointestinal: No symptoms reported Genitourinary: See HPI, Flank pain - R>L, Pain Male Genitourinary: See HPI. denies: Penile discharge Musculoskeletal: See HPI Skin: No symptoms reported Hematologic/Lymphatic: No symptoms reported Neurological/Psychological: No symptoms reported -: Yes All other systems reviewed and negative Physical Exam - Vital signs Vitals: Temp Pulse Resp BP Pulse Ox 98.6 F 137 H 20 161/113 H 95 06/29/20 10:54 06/29/20 10:54 06/29/20 10:54 06/29/20 10:54 06/29/20 10:54 - General General appearance: Appears well, Alert - HEENT Head: Normocephalic, Atraumatic Eyes: Normal Pupils: PERRL - Respiratory Respiratory status: No respiratory distress Chest status: Nontender Breath sounds: Normal Chest palpation: Normal - Cardiovascular Rhythm: Regular Heart sounds: Normal auscultation Murmur: No - Abdominal Inspection: Normal Distension: No distension Bowel sounds: Normal Notes: Tenderness with palpation to the right suprapubic region. No rebound. No rigidity. - Back Notes: Tenderness with palpation to the paraspinal region of the right lower back. No deformity. No midline tenderness. - Extremities General upper extremity: Normal inspection, Normal ROM General lower extremity: Normal inspection, Normal ROM. No: Edema - Neurological Neuro grossly intact: Yes Cognition: Normal Orientation: AAOx4 [place] Coma Scale Eye Opening: Spontaneous [place] Coma Scale Verbal: Oriented [place] Coma Scale Motor: Obeys Commands [place] Coma Scale Total: 15 Speech: Normal Sensory: Normal - Psychological Associated symptoms: Normal affect, Normal mood - Skin Skin Temperature: Warm Skin Moisture: Dry Skin Color: Normal Course - Re-evaluation Re-evalutation: 06/29/20 15:45 MDM 44 year old with back pain - right sided palpable and reproducible - and some hematuria. Work up here - labs and ct are ressuring and I feel he may safely follow up. Discussed this with him and he expressed understanding. Recent meth use - counseled to stop that and will treat for urethritis. - Vital Signs Vital signs: Temp Pulse Resp BP Pulse Ox 98.3 F 125 H 18 133/76 H 97 06/29/20 16:55 06/29/20 16:55 06/29/20 16:55 06/29/20 16:55 06/29/20 16:55 - Laboratory Results Result Diagrams: 06/29/20 12:40 06/29/20 12:40 Laboratory Results Interpreted: 06/29/20 06/29/20 06/29/20 11:07 12:40 12:40 RDW 14.4 H Total Protein 8.3 H Urine Protein 30 H Urine Urobilinogen 4.0 H Ur Leukocyte Esterase TRACE H Critical Laboratory Results Reviewed: No Critical Results - Radiology Results Critical Radiology Results Reviewed: No Critical Results Discharge - Discharge Clinical Impression: Back pain Qualifiers: Back pain location: low back pain Chronicity: acute Back pain laterality: right Sciatica presence: without sciatica Qualified Code(s): M54.5 - Low back pain Hematuria Qualifiers: Hematuria type: unspecified type Qualified Code(s): R31.9 - Hematuria, unspecified Condition: Stable Disposition: HOME, SELF-CARE Instructions: Family Physicians / Practices, Low Back Pain ([facility]) Additional Instructions: Use ice and alternate ice and heat to your back. See your doctor or the referral doctor in follow up. Stop using methamphetamine as it can be harmful to your health. Return here for chest pain, shortness of breath, other problems or other concerns. Your medicine has been sent to [facility] in [place]. Prescriptions: Ibuprofen [Motrin 600 mg Tablet] 600 mg PO TID #30 tablet Doxycycline Hyclate [Vibramycin 100 mg Tablet] 100 mg PO BID 10 Days #20 tablet Forms: Elevated Blood Pressure I personally performed the services described in the documentation, reviewed and edited the documentation which was dictated to the scribe in my presence, and it accurately records my words and actions.
[2020-06-29 16:56] VITALS: BP 133/76
== END 2020-06-29 16:56 | disposition home or self-care (01) ==
LOC: ER 10:38
DX: R31.9 Hematuria, unspecified (principal); M54.5 Low back pain; R10.9 Unspecified abdominal pain; I10 Essential (primary) hypertension; Z88.8 Allergy status to other drugs, medicaments and biological substances; F17.210 Nicotine dependence, cigarettes, uncomplicated; J45.909 Unspecified asthma, uncomplicated
CPT/HCPCS: 99285; 96372; 36415; 87086; 80307 ×2; 83690; 85025; 80053; 81001; 74176; J1170; J2405